=== PATIENT | male | born 1955 | race Caucasian/White ===

== ENCOUNTER → 2016-12-07 | Emergency (ER) | payer MEDICARE ==
[2016-12-07 13:05] LABS: APPEARANCE CLEAR (CLEAR); BILIRUBIN NEGATIVE (NEGATIVE); COLOR YELLOW (YELLOW); GLUCOSE NEGATIVE (NEGATIVE); KETONE NEGATIVE (NEGATIVE); LEUKOCYTE ESTERASE NEGATIVE (NEGATIVE); NITRITE NEGATIVE (NEGATIVE); PROTEIN NEGATIVE (NEGATIVE); SPECIFIC GRAVITY 1.015 (1.005-1.020); UROBILINOGEN NORMAL (NORMAL)
[2016-12-07 13:11] LABS: UDS - AMPHET NEGATIVE QUAL (NEGATIVE); UDS - BARB NEGATIVE QUAL (NEGATIVE); UDS - BENZO NEGATIVE QUAL (NEGATIVE); UDS - COCAINE NEGATIVE QUAL (NEGATIVE); UDS - METH NEGATIVE QUAL (NEGATIVE); UDS - OPIATE NEGATIVE QUAL (NEGATIVE); UDS - PCP NEGATIVE QUAL (NEGATIVE); UDS - THC NEGATIVE QUAL (NEGATIVE)
[2016-12-07 13:38] LABS: BASOPHILS 0.3 % (0-2); HEMATOCRIT 47.2 % (42.0-54.0); HEMOGLOBIN 15.2 g/dL (13.5-17.5); IMMATURE GRANULOCYTES 2.3 % (0-5); LYMPHOCYTES 32.7 % (15-50); MCH 30.1 pg (26.0-34.0); MCHC 32.2 g/dL (31.0-37.0); MCV 93.5 fL (80.0-100.0); MEAN PLATELET VOLUME 12.4 fL (7.4-10.4); MONOCYTES 11.9 % (2-11); NEUTROPHILS 49.8 % (40-80); PLATELET COUNT 136 10x3/uL (130-400); RBC 5.05 10x6/uL (4.20-6.10); RDW 13.3 % (11.5-14.5); WBC 9.7 10x3/uL (4.8-10.8)
[2016-12-07 13:50] LABS: ALBUMIN 3.4 g/dL (3.4-5.0); ALKALINE PHOSPHATASE 62 U/L (46-116); ALT (SGPT) 34 U/L (10-68); BILIRUBIN - TOTAL 0.32 mg/dL (0.2-1.3); CALC OSMOLALITY 276 mosm/kg (275-300); CALCIUM 9.1 mg/dL (8.5-10.1); CARBON DIOXIDE 25.8 mmol/L (21.0-32.0); CHLORIDE - SERUM 104 mmol/L (98-107); CREATININE - SERUM 1.2 mg/dL (0.6-1.3); GLUCOSE 89 mg/dL (74-106); POTASSIUM - SERUM 4.4 mmol/L (3.5-5.1); PROTEIN - SERUM 7.2 g/dL (6.4-8.2); SODIUM 138 mmol/L (136-145); UREA NITROGEN 19 mg/dL (7-18); eGFR NON AFRICAN AMERICAN 65 mL/min (90-120)
[2016-12-07 13:58] LABS: PRO BNP 298 pg/mL (0-125)
[2016-12-07 14:02] LABS: TROPONIN-I < 0.017 ng/mL (0.000-0.060)
== END | disposition home or self-care (01) ==
LOC: D.ER 11:52
PROVIDERS: Emergency Medicine
DX: F23 Brief psychotic disorder (principal); F41.9 Anxiety disorder, unspecified; E11.9 Type 2 diabetes mellitus without complications; Z79.4 Long term (current) use of insulin; I44.0 Atrioventricular block, first degree; I45.10 Unspecified right bundle-branch block

== ENCOUNTER 2020-04-11 09:05 | Inpatient (IN) | payer MEDICARE, OTHER ==
[2020-04-11] VITALS (15 sets, daily range): BP systolic 75–145; BP diastolic 50–82; Ht 175.3 cm; Wt 118.2 kg
[~2020-04-11] VITALS: Ht 175.3 cm; Wt 118.2 kg
[2020-04-11] MEDS ORDERED: TRAZODONE HCL150 MG PO (09:24)
[2020-04-11] MEDS ORDERED: CRESTOR10 MG PO (09:24)
[2020-04-11] MEDS ORDERED: DEPAKOTE500 MG PO ×2 (09:26→09:27)
[2020-04-11] MEDS ORDERED: BENZTROPINE ME0.5 MG PO (09:27)
[2020-04-11] MEDS ORDERED: LISINOPRIL-HCT1 EAC4 PO (09:27)
[2020-04-11] MEDS ORDERED: SYNTHROID112 MCG PO (09:28)
[2020-04-11] MEDS ORDERED: RISPERDAL4 MG PO (09:28)
[2020-04-11] MEDS ORDERED: LEXAPRO20 MG PO (09:28)
[2020-04-11] MEDS ORDERED: OMEPRAZOLE20 M1 PO (09:29)
[2020-04-11] MEDS ORDERED: PREDNISONE5 MG PO (09:30)
[2020-04-11] MEDS ORDERED: AZITHROMYCIN500 MG PO ×2 (09:30→09:31)
--- NOTE | 2020-04-11 09:45 | NUR ---
ATTEMPT TO I&O CATH WITH 16F CATH, UNALE TO ADVANCE BEYOND THE MEATUS. SECOND ATTEMPT WAS WITH A 10F CATH WITH SAME RESULT. ERMD INFORMED AND REQUESTED A COUDE CATH BE USED WHICH RESULTED STATED ABOVE. FINAL ATTEMT AT CATH WITH 8F CATH RESULTING STATED ABOVE.
--- NOTE | 2020-04-11 09:46 | NUR ---
GLUCOSE 98
[2020-04-11 11:03] LABS: CALC OSMOLALITY 297 mosm/kg (275-300); CALCIUM 9.1 mg/dL (8.5-10.1); CARBON DIOXIDE 22.9 mmol/L (21.0-32.0); CHLORIDE - SERUM 104 mmol/L (98-107); CREATININE - SERUM 2.3 mg/dL (0.6-1.3); GLUCOSE 100 mg/dL (74-106); POTASSIUM - SERUM 3.9 mmol/L (3.5-5.1); SODIUM 139 mmol/L (136-145); UREA NITROGEN 69 mg/dL (7-18); eGFR NON AFRICAN AMERICAN 30 mL/min (90-120)
[2020-04-11 11:19] LABS: APTT 31.2 SECONDS (22.8-39.4); INR 1.03 (0.85-1.17); PROTIME 13.4 SECONDS (11.6-15.0)
[2020-04-11 11:20] LABS: ALBUMIN 2.6 g/dL (3.4-5.0); ALKALINE PHOSPHATASE 101 U/L (30-120); ALT (SGPT) 37 U/L (10-68); BILIRUBIN - TOTAL 0.35 mg/dL (0.2-1.3); CKMB 7.2 U/L (0.0-3.6); CREATINE KINASE 98 UL (21-232); MAGNESIUM - SERUM 1.9 mg/dL (1.8-2.4); PROTEIN - SERUM 6.8 g/dL (6.4-8.2); THYROID STIMULATING HORMONE 1.73 uIU/mL (0.36-3.74); TROPONIN-I 0.019 ng/mL (0.000-0.060); VALPROIC ACID (DEPAKOTE) 68.1 ug/mL (50.0-100.0)
[2020-04-11 11:34] LABS: BASOPHILS 0.4 % (0-2); EOSINOPHILS 0 % (0-7); HEMATOCRIT 37.7 % (42.0-54.0); HEMOGLOBIN 12.3 g/dL (13.5-17.5); IMMATURE GRANULOCYTES 5.8 % (0-5); LYMPHOCYTES 12.7 % (15-50); MCH 30.2 pg (26.0-34.0); MCHC 32.6 g/dL (31.0-37.0); MCV 92.6 fL (80.0-100.0); MEAN PLATELET VOLUME 12.6 fL (7.4-10.4); MONOCYTES 12.9 % (2-11); NEUTROPHILS 68.2 % (40-80); RBC 4.07 10x6/uL (4.20-6.10); RDW 13.7 % (11.5-14.5); WBC 4.6 10x3/uL (4.8-10.8)
[2020-04-11 12:09] LABS: PLATELET COUNT 94 10x3/uL (130-400)
--- NOTE | 2020-04-11 12:30 | NUR ---
POX DOWN IN 50'S, PLACED ON NRB MASK WITH O2 WIDE OPEN. RESP AND ERMD AT BEDSIDE. POX REMAINED IN 70'S, PT WAS PLACED ON BIPAP WITH POX REACHING 100%. 2 MG BUMEX ADMINISTERED, DOBUTAMINE GTT STARTED AT 5MCG/KG/MIN.
[2020-04-11 12:57] LABS: PLATELET ESTIMATE DECREASED
--- NOTE | 2020-04-11 12:57 | NUR ---
REPORT TO ELVIE WALDROP
--- NOTE | 2020-04-11 15:15 | NUR ---
PER OBSERVER GRAVITY PROSPECTING, SHE WILL DO PT ECHO FIRST THING IN AM.
--- NOTE | 2020-04-11 15:18 | NUR ---
COVID SWAB TAKEN TO LAB
--- NOTE | 2020-04-11 15:45 | NUR ---
REPORT TO ELVIE SIDHU
--- NOTE | 2020-04-11 15:45 | NUR ---
GITA TO ELVIE SIDHU
--- NOTE | 2020-04-11 16:00 | NUR ---
BLADDER SCAN COMPLETED. 529ML NOTED. ERMD INFORMED. STATED TO TAKE ON TO ICU.
--- NOTE | 2020-04-11 16:14 | NUR ---
DOBUTAMINE GTT AT 17.7ML/HR - 5MCG/KG/ML CONTINUED ON TRANSFER TO ICU. NS AT 30ML/HR CONTINUED ON TRANSFER TO ICU.
--- NOTE | 2020-04-11 16:15 | NUR ---
PT WAS TAKEN TO CT ON NRB 15L BY [employer]ODUCTION [employer] TIN [employer]ANS THEN TAKEN TO ICU. RT MOVED BIPAP TO ICU AND PLACED PT BACK ON IT ONCE HE ARRIVED THERE.
--- NOTE | 2020-04-11 17:30 | NUR ---
HEBER MAGANA APN ATTEMPTED TO PLACE TWO PEDROZA CATHETERS. UNSUCCESSFULL ON BOTH. 16 PRYDEINIG AND 14 PRYDEINIG ACOUDE ATTEMPTED. WILL CONTINUE TO MONITOR
--- NOTE | 2020-04-11 17:57 | NUR ---
HEBER MAGANA APN CALLED TO NOTIFY ME OF POSSIBLE TRANSFER TO [facility]. GAVE OKAY TO SPEAK WITH TRANSFER CENTER IF CALLED ABOUT PT. DR AVALOS AND DR HALL SPEAKING ABOUT TRANSFER OF PT. PT NEEDS UROLOGY WHICH IS UNAVAILABLE AT OUR H[facility]. WILL CONTINUE TO MONITOR.
--- NOTE | 2020-04-11 18:00 | NUR ---
HEBER MAGANA APN GAVE OKAY TO HOLD BUMEX IP
--- NOTE | 2020-04-11 18:36 | NUR ---
SPOKE WITH TRANSFER CENTER. CONTACTED RUBIN AT [facility] ABOUT AN ICU BED. STATED SHE WOULD SEE IF THEY HAD ICU BED. AWAITING CALL BACK.
[2020-04-11 19:32] LABS: C-REACTIVE PROTEIN 40.8 mg/dL (0.0-0.9)
[2020-04-11 19:46] LABS: ERYTHROCYTE SEDIMENTATION RATE 30 mm/hr (0-20)
== END 2020-04-11 22:00 | DRG 177 ==
LOC: D.ER 09:05 → D.EDHOLD 14:16 → D.ICU 14:16
PROVIDERS: Emergency Medicine; ADMIT Family Medicine Adult Medicine; ATTEND Family Medicine Adult Medicine
DX: U07.1 COVID-19 (principal); G93.41 Metabolic encephalopathy; J96.01 Acute respiratory failure with hypoxia; J81.0 Acute pulmonary edema; J12.89 Other viral pneumonia; I50.33 Acute on chronic diastolic (congestive) heart failure; N17.9 Acute kidney failure, unspecified; F72 Severe intellectual disabilities; J98.4 Other disorders of lung; E86.0 Dehydration; G47.00 Insomnia, unspecified; E78.5 Hyperlipidemia, unspecified; E03.9 Hypothyroidism, unspecified; D64.9 Anemia, unspecified; N13.9 Obstructive and reflux uropathy, unspecified; I11.0 Hypertensive heart disease with heart failure